=== PATIENT | female | born 1995 | race Caucasian/White ===

== ENCOUNTER 2016-07-27 08:13 | Emergency (ER) | payer OTHER ==
[~2016-07-27] VITALS: Ht 162.6 cm; Wt 95.0 kg
[~2016-07-27 08:13] MED LIST: ACET-1256 PO; ASPI-390 PO; OXYC-57 PO
[2016-07-27 08:17] VITALS: TEMP 36.5; Ht 162.6 cm; Wt 95.0 kg
[2016-07-27] MEDS ORDERED: OXYCODONE HCL IR 5 MG TAB (IMMEDIATE RELEASE) PO STA (08:35)
--- NOTE | 2016-07-27 08:37 | EMERGENCY ROOM VISIT NOTE ---
History First contact with patient: 08:20 Chief Complaint: FOOT PAIN Stated Complaint: RIGHT FOOT SWOLLEN/BRUISED PAIN History of Present Illness The patient is a 21 year old female who presents to the Emergency Room via private vehicle with complaints of "right foot swollen/bruised pain". The patient states that around 2 AM she was in her home attempting to navigate the stairs when she accidentally rolled her ankle causing pain in the base of the right fifth metatarsal. She rates the pain as an 8-9/10 and burning in nature. She is here with a postop shoe on the left foot of which I prescribed for her less than one week ago for a left fifth metatarsal fracture. There is no numbness or tingling into the distal extremity. Review of Systems A complete 6-point Review of Systems was discussed with the patient, with pertinent positives and negatives listed in the History of Present Illness. All remaining Review of Systems questions can be considered negative unless otherwise specified. Past Medical/Surgical History Medical Problems: (1) Mudievj-Kpivk-Htgye disease (2) Congenital hip dysplasia (3) Fall (4) Rib pain on right side (5) Right hip pain (6) Strep pharyngitis Surgical Problems: (1) History of hip surgery Family History Diabetes mellitus Social History Smoking Status: Never Smoker Social History: Patient lives with friends. Current/Historical Medications Scheduled Acetaminophen (Tylenol), 1,000 MG PO PRN UD Dpepnow-Adzojrnbrftdl-Lwunjhda (Excedrin Migraine), 2 TABS PO PRN UD Scheduled PRN Oxycodone Immediate Rel Tab (Roxicodone Ir), 1-2 TAB PO Q4H PRN for Severe Pain Oxycodone/Acetaminophen 5MG/325MG (Percocet 5MG/325MG), 1 TAB PO Q6H PRN for Pain Allergies Coded Allergies: Kiwi (Unverified Allergy, Severe, HIVES, 07/27/16) Uncoded Allergies: BLEACH (Allergy, Severe, ASTHMA SYMPTOMS/THROAT SWELLS, 07/21/16) Physical Exam Vital Signs Date Time Temp Pulse Resp B/P Pulse Ox O2 Delivery O2 Flow Rate FiO2 07/27/16 10:14 68 18 120/78 99 07/27/16 08:17 36.5 73 17 116/84 98 Room Air Physical Exam VITAL SIGNS - Vital signs and nursing notes were reviewed. Patient is with stable vital signs. GENERAL -21-year-old female appearing her stated age and in noticeable discomfort throughout the exam. MUSCULOSKELETAL -right foot with minimal erythema, edema, and ecchymosis. Exquisite tenderness to palpation appreciated over the base of the fifth metatarsal. No tenderness to palpation in the plantar arch. No tenderness extending into the ankle or toes. Pt near full AROM at affected joint. NEUROLOGIC/VASCULAR - Neurovascularly intact distally are within normal limits pulses. Normal sensation to light and sharp touch appreciated distally. Medical Decision & Procedures ER Provider Diagnostic Interpretation: RIGHT FOOT MIN 3 VIEWS ROUTINE CLINICAL HISTORY: Right foot pain status post trauma COMPARISON: None. DISCUSSION: There are postsurgical changes involving the first metatarsal. There is a nondisplaced transverse fracture through the base the fifth metatarsal. No dislocations are visualized. IMPRESSION: Nondisplaced transverse fracture through the base the fifth metatarsal. Electronically signed by: Cory Mckeon M.D. 07/27/2016 9:02 AM RIGHT ANKLE MIN 3 VIEWS ROUTINE CLINICAL HISTORY: Right ankle pain status post trauma COMPARISON: None. DISCUSSION: There is a nondisplaced transverse fracture through the base the fifth metatarsal. No fractures of the distal tibia or fibula are visualized. The ankle mortise appears intact. IMPRESSION: Nondisplaced fracture through the base of the fifth metatarsal Electronically signed by: Cory Mckeon M.D. 07/27/2016 9:01 AM Medications Administered Medications (Trade) Dose Ordered Sig/Pb Route Start Time Stop Time Status Last Admin Dose Admin Oxycodone HCl (Roxicodone Immediate Rel Tab) 5 mg NOW STAT PO 07/27/16 08:35 07/27/16 08:37 DC 07/27/16 08:42 5 MG Medical Decision Patient was seen and evaluated as above. After obtaining a thorough history and physical examination radiographs were obtained of the right ankle and foot secondary to subjective and objective examination findings. Patient was given 1 OxyIR 5 mg tablet for her pain. She was given this on a previous visit with good relief. Radiograph reveals a nondisplaced transverse fracture through the base of the fifth metatarsal. This is identical to the fracture that she had on the other foot and sustained less than 1 week ago. Because ideally the patient should be nonweightbearing on both feet I was concerned about how she would ambulate. She does have a wheelchair at home of which she had for a previous hip surgery. She states that she can use this. I was concerned about her getting follow-up with orthopedics as she noted that she was told to call back in a week regarding her previous fracture. I discussed the case with case management and they called Dr. Montenegro and Wendy's office. The radiographs were then supposedly reviewed by Dr. Vazquez, and the patient was instructed to leave directly from the emergency department to their office for further evaluation and management. Patient was fitted with a postop shoe for the right foot. Patient was given a prescription for OxyIR for her pain short-term. This was done after verifying no red flags in the [place] drug monitoring system. She was educated upon management and worrisome symptoms in which to return. She had questions answered prior to discharge and was discharged to Dr. Vazquez's office with father driving in good condition. In the evaluation and treatment of this patient following differential diagnoses were entertained: Foot fracture, ankle fracture, contusion, among others. [place] Drug Monitoring Program Search Results: patient reviewed within database, no issues identified Impression Primary Impression: Nondisplaced fracture of fifth right metatarsal bone Departure Information Dispostion Home / Self-Care Condition GOOD Prescriptions Oxycodone Immediate Rel Tab (ROXICODONE IR) 5 Mg Tab 1-2 TAB PO Q4H Y for Severe Pain, #24 TAB Prov: Martín Mckee, DO 07/27/16 Referrals No Doctor, Assigned (PCP) Timoteo Vazquez, DO Patient Instructions A Signature Page, My [facility] Additional Instructions You have been treated in the Emergency Department for a left foot fracture.You have received pain medicine in the emergency department which impairs your ability to operate a vehicle. It is illegal for you to drive after receiving these medicines. You have been prescribed Oxy IR to be used for pain control. This is a narcotic medication. You cannot drive or consume alcohol while on this medicine. This medicine should only be used for pain that cannot be controlled with over-the- counter pain medicines. Please consider taking this medication location with a stool softener to help combat constipation. For pain control, you can use the following [id number]-[id number]-ygosfcp medicines (if >12 yo): - Regular strength (325mg/tab) Tylenol (acetaminophen) 2 tabs every 4-6 hours as needed. Do not exceed 12 tablets in a 24 hour period. Avoid taking more than 4 grams (4000 mg) of Tylenol per day. This includes any other sources of acetaminophen you may take on a regular basis. - Regular strength (200 mg/tab) Advil (ibuprofen) 1-2 tabs every 4-6 hours as needed. Do not exceed a dose of 3200 mg per day. If this is a recent injury (<24 hrs), ice can be applied to the area of pain for the first 3 days to help decrease pain and inflammation. You have been provided the number for an Orthopaedic Surgeon. You should call this number as soon as possible to establish a follow-up visit from today's Emergency Department visit. Keep the foot brace in place until cleared by Orthopedics. Use the crutches you have been provided to keep ALL weight off of the ankle until weight bearing is tolerable. Dr. Vazquez, from [facility] orthopedics has agreed to see you immediately. Please drive directly to their office from here. Please use your wheelchair at home to keep weight off of both feet. Return to the Emergency Department if your current symptoms worsen despite treatment course outlined above, or if you develop any of the following symptoms : intractable pain despite aforementioned treatment course or new onset of numbness or tingling of the foot. Please return to emergency department with any/concerning symptoms.
--- NOTE | 2016-07-27 09:03 | DIAGNOSTIC IMAGING REPORT ---
RIGHT ANKLE MIN 3 VIEWS ROUTINE CLINICAL HISTORY: Right ankle pain status post trauma COMPARISON: None. DISCUSSION: There is a nondisplaced transverse fracture through the base the fifth metatarsal. No fractures of the distal tibia or fibula are visualized. The ankle mortise appears intact. IMPRESSION: Nondisplaced fracture through the base of the fifth metatarsal Electronically signed by: Cory Mckeon M.D. 07/27/2016 9:01 AM
--- NOTE | 2016-07-27 09:04 | DIAGNOSTIC IMAGING REPORT ---
RIGHT FOOT MIN 3 VIEWS ROUTINE CLINICAL HISTORY: Right foot pain status post trauma COMPARISON: None. DISCUSSION: There are postsurgical changes involving the first metatarsal. There is a nondisplaced transverse fracture through the base the fifth metatarsal. No dislocations are visualized. IMPRESSION: Nondisplaced transverse fracture through the base the fifth metatarsal. Electronically signed by: Cory Mckeon M.D. 07/27/2016 9:02 AM
[2016-07-27] MEDS ORDERED: OXYC1TAB3 PO (10:04)
[2016-07-27 10:14] VITALS: BP 120/78; PULSE 68; O2SAT 99
== END 2016-07-27 10:16 | disposition home or self-care (01) ==
LOC: C.EDB 08:15 → C.EDA 10:16
DX: S92.354A Nondisplaced fracture of fifth metatarsal bone, right foot, initial encounter for closed fracture (principal); X58.XXXA Exposure to other specified factors, initial encounter; Y93.89 Activity, other specified; Y92.019 Unspecified place in single-family (private) house as the place of occurrence of the external cause; Y99.8 Other external cause status

== ENCOUNTER → 2016-09-24 | Outpatient (CLI) | payer OTHER ==
[~2016-09-24] MED LIST changes: +OXYC1TAB3 PO
== END | disposition home or self-care (01) ==
LOC: C.LABPVFM 12:14
PROVIDERS: ATTEND Neuromusculoskeletal Medicine & OMM
DX: J02.9 Acute pharyngitis, unspecified (principal)